=== PATIENT | male | born 1965 | race Caucasian/White ===

== ENCOUNTER 2016-11-23 12:47 | Emergency (ER) | payer BC ==
[~2016-11-23] VITALS: Ht 177.8 cm; Wt 112.0 kg
[~2016-11-23 12:47] MED LIST: CYANOCOBALAM1000 MCG PO; Glucosamine/Chondroi PO; NEXIUM40 MG PO; NOHOMEMEDS; NORCO 5/3251 TABLET PO; OSTEO BI-FLEX1 EAC1 PO; THERA TEARS NU1 EACH PO; THERAGRAN1 TABLET PO; Tears Renewed,Artifi PO; VITAMIN B-6250 MG PO; VITAMIN C500 M1 PO; VITAMIN D31000 UNI2 PO; ZOFRAN8 MG PO; [UNRECOGNIZED DRUG - OTHER] PO
[2016-11-23] MEDS ORDERED: KEFLEX500 MG PO (15:11)
[2016-11-23 15:33] VITALS: BP 132/72
== END 2016-11-23 15:33 | disposition home or self-care (01) ==
LOC: EME 12:47
DX: S60.551A Superficial foreign body of right hand, initial encounter (principal); L08.9 Local infection of the skin and subcutaneous tissue, unspecified; Z88.1 Allergy status to other antibiotic agents
CPT/HCPCS: 99281; 99284; S0020